=== PATIENT | male | born 1990 | race Two or more races ===

== ENCOUNTER 2023-09-23 07:44 | Emergency (ER) | payer OTHER, SELFPAY ==
[2023-09-23 07:56] VITALS: BP 150/95; PULSE 90; RESP 16; TEMP 36.6; O2SAT 98; BMI 31.0
--- NOTE | 2023-09-23 08:08 | ED.MALEGU ---
HPI - Male Genitourinary General Chief complaint: Urogenital-Male Stated complaint: Discomfort going to bathroom Time Seen by Provider: 09/23/23 08:00 Source: patient Mode of arrival: ambulatory Limitations: no limitations History of Present Illness HPI Narrative: Patient had a one night stand about a week ago now with discharge from his penis, no swelling no fever MD Complaint: penile discharge Onset (ago): day(s) Duration: intermittent Severity: mild Related Data Previous Rx's Medication Instructions Recorded doxycycline hyclate 100 mg capsule 100 mg PO BID #20 caps 09/23/23 Allergies Allergy/AdvReac Type Severity Reaction Status Date / Time No Known Allergies Allergy Verified 09/23/23 07:56 [No Known Allergies*] Review of Systems Review of Systems: Yes all other systems are reviewed and are negative Neurologic: Denies Sensory deficit (Neuro) [facility] Social History Social History Advance Directives: No Advance Directives Information Provided: No Physical Exam Vital Signs: Vital Signs: Last Vital Signs Temp 98 F 09/23/23 07:56 Pulse 90 09/23/23 07:56 Resp 16 09/23/23 07:56 BP 150/95 H 09/23/23 07:56 Pulse Ox 98 09/23/23 07:56 O2 Del Method Room Air 09/23/23 07:56 BMI result Body Mass Index 31.0 Const: General: healthy appearing Nutritional Appearance: average body habitus Orientation/consciousness: oriented to person and patient oriented x3 Limitations: no limitations HEENT: Head: Yes normal to inspection Ears: external ears normal General nose exam: Normal external nose present Mouth: Normal oral and palatal mucosa present and oropharynx normal Throat: Yes posterior oropharynx normal Eyes: General: appearance normal, both eyes and all related structures Neck: Other: supple Neck: Yes normal visual inspection Chest: Chest palpation & inspection: normal inspection of the chest Resp: Auscultation: clear to auscultation bilaterally Cardio: Jugular venous distension: no JVD Rate: regular rate Rhythm: regular rhythm Heart sounds: S1 normal heart sound present and S2 normal heart sound present GI: Inspection: Yes normal to inspection Palpation (GI): Soft to palpation, nontender and No hepatosplenomegaly present Auscultation: normal bowel sounds : Other: slight penile discharg Skin: General skin exam: no rashes or lesions noted Neuro: General: oriented to person and patient oriented x3 Cranial nerves: Yes CN's II-XII intact bilaterally Motor exam (neuro): 5/5 motor strength present throughout Sensory Exam: No Sensory deficit (Neuro) Extrem: General: Yes normal to inspection Psych: Appearance: grossly normal Course Course Course Narrative: Patient with history and symptoms of STD will treat Medical Decision Making Differential Diagnosis Differential Diagnoses: The differential diagnosis associated with the presentation includes (STI, uti) Social Determinants Patient drinks alcohol daily Discharge Plan Discharge Clinical Impression: STD (male) Patient Disposition: Home, Self-Care Instructions: Male Condom Use (ED) Prescriptions: New doxycycline hyclate 100 mg capsule 100 mg PO BID Qty: 20 0RF Referrals: Physician,None [Primary Care Provider] - 5 days
[2023-09-23 08:26] VITALS: BP 146/81; PULSE 100; RESP 18; O2SAT 99
[2023-09-23] MEDS: cefTRIAXone sodium 500 MG VIAL IM (08:33)
[2023-09-23] MEDS: Doxycycline Monohydrate 100 MG CAPSULE PO (08:33)
[2023-09-23 08:38] LABS: Appearance Urine Clear; Color Urine Yellow; Glucose Urine UA Negative (Negative); Leukocyte Esterase Urine Trace (Negative); Nitrite Urine Negative (Negative); PH 5.5 (5.0-9.0); UMIC TRIGGER UACC YES; Urine Blood Negative (Negative); Urine Ketones Negative (Negative); Urine Protein Negative (Neg-Trace)
[2023-09-23 08:40] LABS: RBC Urine 0-2 /HPF (0-2); UACC Culture Trigger YES
[2023-09-23 08:41] LABS: Bacteria Urine None Seen (None Seen); Hyaline Casts Urine 0-2 /LPF (0-2); Squamous Epithelial Cell Urine 0-2 /HPF (0-2)
[2023-09-23 10:44] LABS: CT PCR NOT DETECTED (Not Detect.); NG PCR NOT DETECTED (Not Detect.)
== END 2023-09-23 08:50 | disposition home or self-care (01) ==
PROVIDERS: Emergency Provider Emergency Medicine
DX: R36.9 Urethral discharge, unspecified (principal); Z20.2 Contact with and (suspected) exposure to infections with a predominantly sexual mode of transmission
CPT/HCPCS: 0353U; 81001; 87086; 96372; 99284; J0696